=== PATIENT | female | born 1995 | race Caucasian/White ===

== ENCOUNTER 2016-05-08 17:37 | Emergency (ER) | payer OTHER ==
[2016-05-08 17:42] VITALS: RESP 16; O2SAT 98
[2016-05-08] MEDS ORDERED: TDAP ADULT 0.5 ML INJ (BOOSTRIX) IM ONE (17:56)
[2016-05-08] MEDS ORDERED: AMOXICILLIN/CLAVULANATE POT 875/125 MG TAB PO ONE (17:56)
--- NOTE | 2016-05-08 17:59 | EDPHY ---
H & P Smoking Status: Never smoked Time Seen by Provider: 05/08/16 17:44 HPI/ROS: CHIEF COMPLAINT: Dog bite left leg HISTORY OF PRESENT ILLNESS: 21-year-old female via private vehicle complaining of dog bite to her left leg when she was breaking up a fight between her dog and another dog. Occurred earlier today. Sustained a puncture wound/bite to her left medial tibial region. Tetanus is out-of-date. PHYSICAL EXAM (Prior to examination, patient consented to physical exam, hands were washed and my usual and customary physical exam procedures followed) 1) GENERAL: Well-developed, well-nourished, alert and oriented. Appears to be in no acute distress. 2) HEAD: Normocephalic 3) HEENT: sclera anicteric 4) LUNGS: Breathing comfortably. 5) SKIN: There is a 1.5 cm puncture wound/bite left medial proximal tibial region. Compartments are soft. There are no signs of infection. 6) MUSCULOSKELETAL: Soft compartments. DP PT pulses present and brisk. Brisk capillary refill distally 7) NEUROLOGIC: Full sensation (Malou Nicole) Constitutional: Initial Vital Signs Temperature (C) 36.5 C 05/08/16 17:39 Heart Rate 78 05/08/16 17:39 Respiratory Rate 16 05/08/16 17:39 Blood Pressure 135/79 H 05/08/16 17:39 O2 Sat (%) 98 05/08/16 17:39 O2 Delivery Mode Room Air Allergies/Adverse Reactions: Sulfa (Sulfonamide Antibiotics) Allergy (Verified 05/08/16 17:39) Home Medications: Medication Instructions Recorded Amoxicillin/Clavulanate Pot 875 mg PO BID #14 tab 05/08/16 [Augmentin 875 mg tab] ED Images - Extremities Legs Front/Back: 1 - Bite MDM/Departure - MDM Procedures: Wound anesthetic with 1% lidocaine with epinephrine. Wound irrigated by ER staff (Malou Nicole) Medications Given: Discontinued Medications Amoxicillin/Clavulanate Potassium (Augmentin 875mg) 875 mg PO EDNOW ONE PRN Reason: Protocol Stop: 05/08/16 17:57 Last Admin: 05/08/16 18:15 Dose: 875 mg Diphtheria/Tetanus/Acell Pertussis (Boostrix) 0.5 ml IM .ONCE ONE Stop: 05/08/16 17:57 Last Admin: 05/08/16 18:15 Dose: 0.5 ml ED Course/Re-evaluation: Started on Augmentin. Tetanus updated. Recommend 2 day recheck. Usual customary wound precautions provided. She feels comfortable being discharged. ( Malou Nicole) I did not see this patient while she was in the emergency department. However her care was discussed with the PA while the patient was in the department. I agree with treatment plan and management (Juan Pablo Lau) - Depart Disposition: Home, Routine, Self-Care Clinical Impression: Dog bite of left lower leg Qualifiers: Encounter type: initial encounter Qualified Code(s): S81.852A - Open bite, left lower leg, initial encounter Condition: Good Instructions: Animal Bite (ED) Additional Instructions: Return to the ER if you develop redness, swelling, discharge, warmth to the wound, red streaks going up your leg, or any other symptoms that concern you. Prescriptions: Amoxicillin/Clavulanate Pot [Augmentin 875 mg tab] 875 mg PO BID #14 tab Referrals: YURY VINCENT [Other] - As per Instructions
[2016-05-08 18:32] VITALS: BP 133/87; PULSE 86; TEMP 98.4
== END 2016-05-08 18:32 | disposition home or self-care (01) ==
DX: S81.852A Open bite, left lower leg, initial encounter (principal); Z23 Encounter for immunization; W54.0XXA Bitten by dog, initial encounter